=== PATIENT | female | born 1960 | race Caucasian/White ===

== ENCOUNTER 2022-04-02 06:00 | Day surgery (SDC) | payer BC ==
[2022-04-02] MEDS ORDERED: Dextrose 5%-Lactated Ringers 1,000 ML IV SCH (06:30)
[2022-04-02] MEDS ORDERED: Glycopyrrolate 0.2 MG/ML 2 ML SDV IVPUSH ONE (07:00)
[2022-04-02] MEDS ORDERED: Midazolam 1 MG/ML 2 ML SDV ONE (07:05)
[2022-04-02] MEDS ORDERED: Propofol 200 MG/20 ML SDV ONE (07:05)
[2022-04-02] MEDS ORDERED: fentaNYL 100 MCG/2 ML SDV ONE (07:05)
== END 2022-04-02 08:48 | disposition home or self-care (01) ==
LOC: JP.SDS 06:00
PROVIDERS: ATTEND Surgery
DX: K22.10 Ulcer of esophagus without bleeding (principal); K29.60 Other gastritis without bleeding; K21.9 Gastro-esophageal reflux disease without esophagitis; Z98.84 Bariatric surgery status; Z01.812 Encounter for preprocedural laboratory examination; Z20.822 Contact with and (suspected) exposure to COVID-19; E03.9 Hypothyroidism, unspecified
CPT/HCPCS: 87081; J2250; J2704; J3010; J3490; J7121; U0002

== ENCOUNTER 2022-04-30 02:58 | Inpatient (IN) | payer BC ==
[2022-04-30] MEDS ORDERED: Meropenem 500 MG SDV ONE (06:54)
[2022-04-30] MEDS ORDERED: Lidocaine 1% with EPINEPHrine 1:100,000 50 ML MDV ONE (06:55)
[2022-04-30] MEDS ORDERED: fentaNYL 250 MCG/5 ML SDV ONE (07:02)
[2022-04-30] MEDS ORDERED: Dexamethasone 4 MG/ML SDV ONE (07:03)
[2022-04-30] MEDS ORDERED: Neostigmine Methylsulfate 1 MG/ML 5 ML Syringe ONE (07:03)
[2022-04-30] MEDS ORDERED: Succinylcholine 200 MG/10 ML MDV ONE (07:03)
[2022-04-30] MEDS ORDERED: Glycopyrrolate 0.2 MG/ML 5 ML MDV ONE (07:03)
[2022-04-30] MEDS ORDERED: Ondansetron 4 MG/2 ML SDV ONE (07:03)
[2022-04-30] MEDS ORDERED: Rocuronium 50 MG/5 ML Vial ONE ×2 (07:03→11:48)
[2022-04-30] MEDS ORDERED: Propofol 200 MG/20 ML SDV ONE (07:03)
[2022-04-30] MEDS ORDERED: Scopolamine 1.5 MG Transdermal Patch TOP SCH (09:30)
[2022-04-30] MEDS ORDERED: Gabapentin 300 MG Cap PO ONE (09:30)
[2022-04-30] MEDS ORDERED: Dextrose 5%-Lactated Ringers 1,000 ML IV SCH (09:30)
[2022-04-30] MEDS ORDERED: Acetaminophen 500 MG Tab PO ONE (09:30)
[2022-04-30] MEDS ORDERED: Celecoxib 200 MG Cap PO ONE (09:30)
[2022-04-30] MEDS ORDERED: cefOXitin 2 GM in Sodium Chloride 0.9% 50 ML IV ONE (10:00)
[2022-04-30] MEDS ORDERED: Ketamine 500 MG/5 ML MDV IV SCH (10:45)
[2022-04-30] MEDS ORDERED: Ropivacaine 40 ML, dexAMETHasone 8 MG, EPINEPHrine 0.4 MG, Sodium Chloride 0.9% 37.6 ML NERVRT SCH ×4 (10:45)
[2022-04-30] MEDS ORDERED: Ketamine 15 MG in Sodium Chloride 0.9% 19.85 ML IV SCH (10:45)
[2022-04-30] MEDS ORDERED: Linezolid 600 MG/300 ML Premix Bag IRR ONE (11:17)
[2022-04-30] MEDS ORDERED: fentaNYL 100 MCG/2 ML SDV ONE ×3 (11:28→13:29)
[2022-04-30] MEDS ORDERED: diphenhydrAMINE 50 MG/ML SDV IVPUSH PRN ×2 (11:33→15:00)
[2022-04-30] MEDS ORDERED: Ondansetron 4 MG/2 ML SDV IVPUSH PRN ×2 (11:33→15:00)
[2022-04-30] MEDS ORDERED: diphenhydrAMINE 25 MG Cap PO PRN (11:33)
[2022-04-30] MEDS ORDERED: Naloxone 0.4 MG/ML SDV IVPUSH PRN (11:33)
[2022-04-30] MEDS ORDERED: Labetalol 20 MG/4 ML Syringe ONE (11:38)
[2022-04-30] MEDS: HYDROmorphone/Normal Saline 6 MG/30 ML PCA Vial IV PRN (11:40)
[2022-04-30] MEDS ORDERED: Naloxone 0.4 MG/ML SDV IV PRN (12:00)
[2022-04-30] MEDS ORDERED: Tranexamic Acid 1,000 MG in Sodium Chloride 0.9% 50 ML IV ONE ×2 (12:30→16:00)
[2022-04-30] MEDS ORDERED: Lactated Ringers 1,000 ML ONE (12:35)
[2022-04-30] MEDS ORDERED: Metoclopramide 10 MG/2 ML SDV IVPUSH PRN (15:00)
[2022-04-30] MEDS ORDERED: Acetaminophen 500 MG Tab PO PRN (15:00)
[2022-04-30] MEDS ORDERED: Labetalol 20 MG/4 ML Syringe IVPUSH PRN (15:00)
[2022-04-30] MEDS ORDERED: hydrOXYzine HCL 100 MG/2 ML SDV IM PRN (15:00)
[2022-04-30] MEDS ORDERED: MVI, Adult with Vitamin K 10 ML, Thiamine 200 MG, Zinc/Copper/Manganese/Selenium 1 ML i... IV SCH ×4 (16:00)
[2022-04-30] MEDS ORDERED: Pantoprazole 40 MG Vial IVPUSH SCH (16:00)
[2022-04-30] MEDS: cefOXitin 2 GM in Sodium Chloride 0.9% 50 ML IV SCH ×2 (16:29→21:30)
[2022-04-30] MEDS: Acetaminophen 500 MG Tab PO SCH (16:30)
[2022-04-30] MEDS: Dextrose 5%-Lactated Ringers 1,000 ML IV SCH (22:58)
[2022-05-01] MEDS: Acetaminophen 500 MG Tab PO SCH ×3 (01:33→17:34)
[2022-05-01] MEDS: cefOXitin 2 GM in Sodium Chloride 0.9% 50 ML IV SCH ×4 (04:34→22:55)
[2022-05-01] MEDS: Dextrose 5%-Lactated Ringers 1,000 ML IV SCH (04:35)
[2022-05-01] MEDS ORDERED: Iopamidol 612 MG/ML 50 ML SDV IV PRN (04:48)
[2022-05-01 05:32] LABS: ESTIMATED GFR 56 (>60)
[2022-05-01] MEDS ORDERED: Dextrose 5%-Lactated Ringers 1,000 ML IV SCH (07:29)
[2022-05-01] MEDS: Gabapentin 300 MG Cap PO SCH (08:37)
[2022-05-01] MEDS: Losartan 50 MG Tab PO SCH (08:37)
[2022-05-01] MEDS: Hydrochlorothiazide 12.5 MG Cap PO SCH ×2 (08:37→10:28)
[2022-05-01] MEDS: Celecoxib 200 MG Cap PO SCH ×2 (08:37→21:55)
[2022-05-01] MEDS: SCOPOLAMINE PATCH CHECK TOP SCH (08:38)
[2022-05-01] MEDS: Levothyroxine 88 MCG Tab PO SCH (08:38)
[2022-05-01] MEDS: HYDROmorphone/Normal Saline 6 MG/30 ML PCA Vial IV PRN (15:34)
[2022-05-01] MEDS: Pantoprazole 40 MG Delayed-Release Granules 1 Packet PO SCH (15:35)
[2022-05-01] MEDS ORDERED: MVI, Adult with Vitamin K 10 ML, Thiamine 200 MG, Zinc/Copper/Manganese/Selenium 1 ML i... IV SCH ×4 (16:00)
[2022-05-02] MEDS: Acetaminophen 500 MG Tab PO SCH ×3 (01:30→16:43)
[2022-05-02] MEDS: cefOXitin 2 GM in Sodium Chloride 0.9% 50 ML IV SCH (05:00)
[2022-05-02 05:23] LABS: ESTIMATED GFR 56 (>60)
[2022-05-02] MEDS ORDERED: Ondansetron 4 MG Tab.DIS PO PRN (07:37)
[2022-05-02] MEDS: Gabapentin 300 MG Cap PO SCH (07:59)
[2022-05-02] MEDS: Celecoxib 200 MG Cap PO SCH ×2 (07:59→20:46)
[2022-05-02] MEDS: Hydrochlorothiazide 12.5 MG Cap PO SCH (07:59)
[2022-05-02] MEDS: Levothyroxine 88 MCG Tab PO SCH (07:59)
[2022-05-02] MEDS: Losartan 50 MG Tab PO SCH (07:59)
[2022-05-02] MEDS: SCOPOLAMINE PATCH CHECK TOP SCH (07:59)
[2022-05-02] MEDS ORDERED: Cyanocobalamin (Vitamin B12) 1,000 MCG/ML SDV IM ONE (09:00)
[2022-05-02] MEDS: Docusate Sodium 100 MG Cap PO SCH ×2 (09:25→20:46)
[2022-05-02] MEDS: Bisacodyl 5 MG Tab PO SCH ×2 (09:25→20:46)
[2022-05-02] MEDS: HYDROmorphone 2 MG Tab PO PRN ×2 (11:44→20:43)
[2022-05-02] MEDS: Cyclobenzaprine 10 MG Tab PO PRN ×2 (14:06→22:49)
[2022-05-02] MEDS: Pantoprazole 40 MG Delayed-Release Granules 1 Packet PO SCH (16:43)
[2022-05-03] MEDS: Acetaminophen 500 MG Tab PO SCH ×2 (01:27→08:11)
[2022-05-03 04:51] LABS: ESTIMATED GFR > 60 (>60)
[2022-05-03] MEDS: HYDROmorphone 2 MG Tab PO PRN (05:17)
[2022-05-03] MEDS: Gabapentin 300 MG Cap PO SCH (08:08)
[2022-05-03] MEDS: Celecoxib 200 MG Cap PO SCH (08:08)
[2022-05-03] MEDS: Losartan 50 MG Tab PO SCH (08:08)
[2022-05-03] MEDS: Hydrochlorothiazide 12.5 MG Cap PO SCH (08:08)
[2022-05-03] MEDS: Docusate Sodium 100 MG Cap PO SCH (08:09)
[2022-05-03] MEDS: Bisacodyl 5 MG Tab PO SCH (08:09)
[2022-05-03] MEDS: Levothyroxine 88 MCG Tab PO SCH (08:10)
== END 2022-05-03 11:30 | disposition home or self-care (01) | DRG 443 ==
LOC: JP.MS 08:50 → JP.SDS 08:50 → EDSTATUS 11:30
PROVIDERS: ADMIT Surgery; ATTEND Surgery
PROC: 0WQF0ZZ Repair Abdominal Wall, Open Approach (ICD-10-PCS; principal; 2022-04-30)
PROC: 0DB60ZZ Excision of Stomach, Open Approach (ICD-10-PCS; 2022-04-30)
PROC: 0DB50ZZ Excision of Esophagus, Open Approach (ICD-10-PCS; 2022-04-30)
PROC: 0WPF0JZ Removal of Synthetic Substitute from Abdominal Wall, Open Approach (ICD-10-PCS; 2022-04-30)
PROC: 0DQ60ZZ Repair Stomach, Open Approach (ICD-10-PCS; 2022-04-30)
DX: T83.718A Erosion of other implanted mesh to organ or tissue, initial encounter (principal); I10 Essential (primary) hypertension; Y83.8 Other surgical procedures as the cause of abnormal reaction of the patient, or of later complication, without mention of misadventure at the time of the procedure; K43.0 Incisional hernia with obstruction, without gangrene; M19.90 Unspecified osteoarthritis, unspecified site; K21.9 Gastro-esophageal reflux disease without esophagitis; E03.9 Hypothyroidism, unspecified; E78.00 Pure hypercholesterolemia, unspecified; Z90.49 Acquired absence of other specified parts of digestive tract; Z98.49 Cataract extraction status, unspecified eye; Y92.89 Other specified places as the place of occurrence of the external cause; Z98.891 History of uterine scar from previous surgery; Z90.710 Acquired absence of both cervix and uterus
CPT/HCPCS: 36415; 74240; 74240-26; 80053; 82947; 83735; 83880; 84100; 85025; 85027; 86850; 86900; 86901; 88300; 88302; 88307; A9270-GY; C9113; J0171; J0330; J0694; J1100; J1170; J2020; J2185; J2405; J2704; J2710; J2795; J3010; J3411; J3420; J3490; J7120; J7121; Q0162; Q9967

== ENCOUNTER 2022-05-23 21:37 | Emergency (ER) | payer BC ==
[2022-05-23] MEDS ORDERED: Ondansetron 4 MG/2 ML SDV IVPUSH ONE (22:29)
[2022-05-23] MEDS ORDERED: HYDROmorphone 0.5 MG/0.5 ML Syringe IVPUSH ONE (22:29)
[2022-05-23] MEDS ORDERED: Sodium Chloride 0.9% 1,000 ML IV SCH (22:30)
[2022-05-23 23:05] LABS: ESTIMATED GFR 72 mL/min (>60)
[2022-05-24] MEDS ORDERED: Pantoprazole 40 MG Vial IVPUSH ONE (00:07)
[2022-05-24] MEDS ORDERED: Sodium Chloride 0.9% 50 ML IV SCH (01:00)
[2022-05-24] MEDS ORDERED: Iopamidol 612 MG/ML 100 ML Bottle IV ONE (01:00)
[2022-05-24] MEDS ORDERED: Sodium Chloride 0.9% 1,000 ML IV SCH (01:45)
== END 2022-05-24 03:19 | disposition home or self-care (01) ==
LOC: JP.ED 21:37
DX: N28.89 Other specified disorders of kidney and ureter (principal); E86.0 Dehydration; I10 Essential (primary) hypertension; E03.9 Hypothyroidism, unspecified; Z79.899 Other long term (current) drug therapy
CPT/HCPCS: 36415; 74177; 80053; 81001; 85025; 86140; 96361; 96374; 96375; 99284; C9113; J1170; J2405; J3490; J7030; Q9967